=== PATIENT | male | born 1985 | race Caucasian/White ===

== ENCOUNTER 2021-03-05 08:18 | Emergency (ER) | payer BC ==
[2021-03-05] MEDS ORDERED: Sodium Chloride 0.9% 2.5 ML Syringe FLUSH PRN (08:20)
[2021-03-05] MEDS ORDERED: Sodium Chloride 0.9% 10 ML Syringe FLUSH PRN (08:20)
--- NOTE | 2021-03-05 08:21 | EDM.PDOC ---
ED HPI GENERAL MEDICAL PROBLEM - General Stated Complaint: SOB CHEST FEELS FUNNY Time Seen by Provider: 03/05/21 08:20 Source of Information: Reports: Patient History Limitations: Reports: No Limitations - History of Present Illness INITIAL COMMENTS - FREE TEXT/NARRATIVE: 35-year-old male no past medical history presents for palpitations. Patient notes that for the last 2 months he has had on and off feelings of heart fluttering. Woke up this morning with similar feelings. He cannot think of anything that causes the symptoms. He notes some shortness of breath when he has his heart fluttering sensation but denies any chest pain. He has not had this worked up by cardiology or sought medical attention for this in the past. He does endorse a self diagnosed history of anxiety. He denies any recent illnesses, fevers, cough. - Related Data Allergies Allergy/AdvReac Type Severity Reaction Status Date / Time No Known Allergies Allergy Verified 03/05/21 08:54 Home Meds: Home Meds . [No Known Home Meds] 09/04/14 [History] ED ROS GENERAL - Review of Systems Review Of Systems: Comprehensive ROS is negative, except as noted in HPI. ED EXAM, GENERAL - Physical Exam Exam: See Below Exam Limited By: No Limitations General Appearance: Alert, WD/WN, No Apparent Distress Ears: Hearing Grossly Normal Throat/Mouth: Normal Voice, No Airway Compromise Head: Atraumatic, Normocephalic Respiratory/Chest: No Respiratory Distress, Lungs Clear, Normal Breath Sounds, No Accessory Muscle Use Cardiovascular: Normal Peripheral Pulses, Regular Rate, Rhythm, No Edema GI/Abdominal: Soft, Non-Tender Extremities: Normal Inspection Neurological: Alert, Normal Cognition, Normal Gait Psychiatric: Normal Affect, Normal Mood Skin Exam: Warm, Dry, Intact, Normal Color #1 Interpretation EKG Date: 03/05/21 Time: 08:19 Rhythm: NSR Rate (Beats/Min): 68 [place]: Normal P-Wave: Present QRS: Normal ST-T: Normal QT: Normal CT/PQ Interval: 138 Comparison: NA - No Prior EKG EKG Interpretation Comments: Normal EKG with one PVC Course - Vital Signs Last Recorded V/S: Last Vital Signs Temp 98.2 F 03/05/21 09:23 Pulse 62 03/05/21 09:23 Resp 18 03/05/21 09:23 BP 149/86 H 03/05/21 09:23 Pulse Ox 97 03/05/21 09:23 - Orders/Labs/Meds Orders: Active Orders 24 hr Category Date Time Status Cardiac Monitoring [RC] . DIRECTED Care 03/05/21 08:21 Active Pulse Oximetry [RC] ASDIRECTED Care 03/05/21 08:21 Active Sodium Chloride 0.9% [Saline Flush] Med 03/05/21 08:20 Active 10 ml FLUSH ASDIRECTED PRN Sodium Chloride 0.9% [Saline Flush] Med 03/05/21 08:20 Active 2.5 ml FLUSH ASDIRECTED PRN Saline Lock Insert [OM.PC] Stat Oth 03/05/21 08:21 Ordered Medication Orders Sodium Chloride (Sodium Chloride 0.9% 10 Ml Syringe) 10 ml FLUSH ASDIRECTED PRN PRN Reason: Keep Vein Open Sodium Chloride (Sodium Chloride 0.9% 2.5 Ml Syringe) 2.5 ml FLUSH ASDIRECTED PRN PRN Reason: Keep Vein Open Labs: Laboratory Tests 03/05/21 03/05/21 Range/Units 08:28 08:28 WBC 6.07 (4.0-11.0) K/uL RBC 4.94 (4.50-5.90) M/uL Hgb 14.8 (13.0-17.0) g/dL Hct 40.8 (38.0-50.0) % MCV 82.6 (80.0-98.0) fL MCH 30.0 (27.0-32.0) pg MCHC 36.3 (31.0-37.0) g/dL RDW Std Deviation 37.4 (28.0-62.0) fl RDW Coeff of Low 13 (11.0-15.0) % Plt Count 184 (150-400) K/uL MPV 11.40 (7.40-12.00) fL Neut % (Auto) 52.4 (48.0-80.0) % Lymph % (Auto) 37.2 (16.0-40.0) % [place] % (Auto) 8.2 (0.0-15.0) % Eos % (Auto) 2.0 (0.0-7.0) % Baso % (Auto) 0.2 (0.0-1.5) % Neut # (Auto) 3.2 (1.4-5.7) K/uL Lymph # (Auto) 2.3 (0.6-2.4) K/uL [place] # (Auto) 0.5 (0.0-0.8) K/uL Eos # (Auto) 0.1 (0.0-0.7) K/uL Baso # (Auto) 0.0 (0.0-0.1) K/uL Nucleated RBC % 0.0 /100WBC Nucleated RBCs # 0 K/uL Sodium 140 (136-148) mmol/L Potassium 4.0 (3.5-5.1) mmol/L Chloride 103 (98-107) mmol/L Carbon Dioxide 26.2 (21.0-32.0) mmol/L BUN 14 (7.0-18.0) mg/dL Creatinine 1.0 (0.8-1.3) mg/dL Est Cr Clr Drug Dosing 108.49 mL/min Estimated GFR (MDRD) > 60.0 ml/min Glucose 95 (74-106) mg/dL Calcium 9.1 (8.5-10.1) mg/dL Magnesium 2.1 (1.8-2.4) mg/dL Total Bilirubin 0.6 (0.2-1.0) mg/dL AST 23 (15-37) IU/L ALT 69 H (14-63) IU/L Alkaline Phosphatase 55 (46-116) U/L Troponin I < 0.050 (0.000-0.056) ng/mL Total Protein 7.0 (6.4-8.2) g/dL Albumin 4.3 (3.4-5.0) g/dL Globulin 2.7 (2.6-4.0) g/dL Albumin/Globulin Ratio 1.6 (0.9-1.6) TSH, Ultra Sensitive 1.29 (0.36-3.74) uIU/mL Meds: Medications Generic Name Dose Route Start Last Admin Trade Name Freq PRN Reason Stop Dose Admin Sodium Chloride 10 ml 03/05/21 08:20 Sodium Chloride 0.9% 10 Ml Syringe FLUSH ASDIRECTED PRN Keep Vein Open Sodium Chloride 2.5 ml 03/05/21 08:20 Sodium Chloride 0.9% 2.5 Ml Syringe FLUSH ASDIRECTED PRN Keep Vein Open - Re-Assessments/Exams Free Text/Narrative Re-Assessment/Exam: 03/05/21 08:30 Patient presents with palpitations x2 months worsening today. EKG does reveal one PVC. Will get basic labs and chest x-ray. 03/05/21 09:30 Labs and imaging are unremarkable. Will discharge patient with Zio patch and have results forwarded to local cardiology with cardiology follow-up requested. Patient was placed on cardiology follow-up list. Departure - Departure Time of Disposition: : Disposition: Home, Self-Care 01 Condition: Good Clinical Impression: Palpitations, PVC (premature ventricular contraction) - Discharge Information Instructions: Premature Ventricular Contraction, Palpitations Additional Instructions: You were emergency department work-up for palpitations was essentially unremar kable. You were noted to have a premature ventricular contraction on your EKG. You were also placed on a device called a Zio patch which will help monitor your heart rate over the next several days. The results of the Zio patch will be forwarded to our local blister rust eradicator who you can follow-up with. If you develop difficulty breathing or chest pain or rapid heart rate you were encouraged to come back to the emergency department for reassessment. [facility] [address] [place], [place] [id number] The following information is given to patients seen in the emergency department who are being discharged to home. This information is to outline your options for follow-up care. We provide all patients seen in our emergency department with a follow-up referral. The need for follow-up, as well as the timing and circumstances, are variable depending upon the specifics of your emergency department visit. If you don't have a primary care physician on staff, we will provide you with a referral. We always advise you to contact your personal physician following an emergency department visit to inform them of the circumstance of the visit and for follow-up with them and/or the need for any referrals to a consulting specialist. The emergency department will also refer you to a specialist when appropriate. This referral assures that you have the opportunity for follow-up care with a specialist. All of these measure are taken in an effort to provide you with optimal care, which includes your follow-up. Under all circumstances we always encourage you to contact your private physician who remains a resource for coordinating your care. When calling for follow-up care, please make the office aware that this follow-up is from your recent emergency room visit. If for any reason you are refused follow-up, please contact the [facility] Emergency Depa rtment at and asked to speak to the emergency department charge nurse. Please follow up with your primary care physician. If you do not have a primary care physician, see below: [facility] [address] [place] [id number] [facility] [address] [place] [address] [facility] [address] [place] [id number] Sepsis Event Note (ED) - Focused Exam Vital Signs: Vital Signs Temp Pulse Resp BP Pulse Ox 03/05/21 09:23 98.2 F 62 18 149/86 H 97 03/05/21 08:57 68 18 160/72 H 98 03/05/21 08:49 97.2 F 66 20 132/82 98 - My Orders Last 24 Hours: My Active Orders 03/05/21 08:20 Sodium Chloride 0.9% [Saline Flush] 10 ml FLUSH ASDIRECTED PRN Sodium Chloride 0.9% [Saline Flush] 2.5 ml FLUSH ASDIRECTED PRN 03/05/21 08:21 Cardiac Monitoring [RC] . DIRECTED Pulse Oximetry [RC] ASDIRECTED Saline Lock Insert [OM.PC] Stat - Assessment/Plan Last 24 Hours: My Active Orders 03/05/21 08:20 Sodium Chloride 0.9% [Saline Flush] 10 ml FLUSH ASDIRECTED PRN Sodium Chloride 0.9% [Saline Flush] 2.5 ml FLUSH ASDIRECTED PRN 03/05/21 08:21 Cardiac Monitoring [RC] . DIRECTED Pulse Oximetry [RC] ASDIRECTED Saline Lock Insert [OM.PC] Stat
[2021-03-05 09:16] LABS: BLOOD UREA NITROGEN,BUN 14 mg/dL (7.0-18.0); CARBON DIOXIDE,CO2 26.2 mmol/L (21.0-32.0); CHLORIDE,CL 103 mmol/L (98-107); GLUCOSE RANDOM 95 mg/dL (74-106); SODIUM,NA 140 mmol/L (136-148)
--- NOTE | 2021-03-05 09:16 | CR ---
INDICATION: Shortness of breath. TECHNIQUE: AP portable chest. FINDINGS: Clear lungs. Normal heart size and pulmonary vascularity. The included skeleton is unremarkable. IMPRESSION: Negative portable chest. Dictated by Kirill Grissom MD @ 03/05/2021 9:14:13 AM (Electronically Signed)
[2021-03-05 11:06] VITALS: BP 133/73; PULSE 66
== END 2021-03-05 10:12 | disposition home or self-care (01) ==
LOC: MW.ED 08:18
DX: I49.3 Ventricular premature depolarization (principal)
CPT/HCPCS: 36415; 71045; 71045-26; 80053; 83735; 84443; 84484; 85025; 99285-25

== ENCOUNTER 2022-03-02 03:20 | Emergency (ER) | payer BC ==
[2022-03-02] MEDS ORDERED: Ketorolac 30 MG/ML SDV IM ONE (03:37)
[2022-03-02] MEDS ORDERED: Cyclobenzaprine 10 MG Tab PO ONE (03:43)
[2022-03-02 04:07] VITALS: BP 150/83; PULSE 70
== END 2022-03-02 04:06 | disposition home or self-care (01) ==
LOC: MW.ED 03:20
DX: M26.621 Arthralgia of right temporomandibular joint (principal)
CPT/HCPCS: 96372; 99283; A9270; J1885

== ENCOUNTER 2024-12-15 08:54 | Emergency (ER) | payer BC, OTHER ==
[2024-12-15 09:11] VITALS: BP 143/74; PULSE 58
[2024-12-15] MEDS ORDERED: Sodium Chloride 0.9% 1,000 ML IV ONE (10:39)
[2024-12-15] MEDS ORDERED: Ondansetron 4 MG/2 ML SDV IVPUSH ONE (10:39)
== END 2024-12-15 10:51 | disposition left against medical advice (07) ==
LOC: MW.ED 08:54
DX: F19.239 Other psychoactive substance dependence with withdrawal, unspecified (principal); Z72.89 Other problems related to lifestyle
CPT/HCPCS: 99283